=== PATIENT | female | born 1945 | race Caucasian/White ===

== ENCOUNTER 2020-01-19 10:46 | Inpatient (IN) | payer MEDICARE, OTHER ==
[~2020-01-19] VITALS: Ht 162.6 cm; Wt 49.4 kg
[2020-01-19] MEDS ORDERED: MECLIZINE CHEWABLE 25 MG TAB ONE (11:23)
[2020-01-19] MEDS ORDERED: MECLIZINE CHEWABLE 25 MG TAB PO ONE (11:30)
[2020-01-19 11:39] LABS: BASOPHILS % (AUTO) 0 % (0-1); EOSINOPHILS % (AUTO) 0 % (1-7); LYMPHOCYTES % (AUTO) 9 % (22-44); MD NO; MEAN CORPUSCULAR HEMOGLOBIN 32.5 pg (27.0-34.8); MEAN CORPUSCULAR HGB CONC 33.6 g/dL (32.4-35.8); MEAN CORPUSCULAR VOLUME 96.6 fL (80-100); MEAN PLATELET VOLUME 6.3 fL (7.4-10.4); MONOCYTES # (AUTO) 0.49 x10^3/uL (0.2-0.8); MONOCYTES % (AUTO) 9 % (2-9); NEUTROPHILS % (AUTO) 82 % (42-75); PLATELET COUNT 331 x10^3/uL (130-400); RED CELL DISTRIBUTION WIDTH 13.1 % (9.6-15.2)
[2020-01-19 11:41] LABS: ALBUMIN 3.7 g/dL (3.4-5.0); CALCIUM 8.9 mg/dL (8.5-10.1); CREATININE 0.46 mg/dL (0.55-1.02)
[2020-01-19 11:45] LABS: TROPONIN I < 0.015 ng/mL (0.000-0.045)
--- NOTE | 2020-01-19 11:46 | NUR ---
PT STATES INCREASING DIZZINESS, G/O WEAKNESS AND NAUSEA SINCE STARTING SCRIPT FOR SHINGLES X4 DAYS AGO. PT PLACED ON MONITORS, VSS. PT MEDICATED PER ORDERS. PT TO IMAGING. CONT TO MONITOR.
[2020-01-19 11:47] LABS: ANION GAP 10 mmol/L (5-15); CHLORIDE 72 mmol/L (98-107)
--- NOTE | 2020-01-19 12:03 | NUR ---
CRITICAL NA+ 111 REPORTED TO ERMD. SALES REPRESENTATIVE RAW [employer] STUDENT AT BEDSIDE FOR IV START, RN TO SUPERVISE. PT REMAINS ON MONITORS, VSS.
--- NOTE | 2020-01-19 12:07 | NUR ---
IRIS AT [facility] FOR REASSESSMENT.
[2020-01-19] MEDS ORDERED: SODIUM CHLORIDE 0.9% 1,000 ML IV ONE (12:30)
[2020-01-19] MEDS ORDERED: POTASSIUM CHLORIDE 20 MEQ PACKET PO ONE (12:30)
[2020-01-19] MEDS ORDERED: SODIUM CHLORIDE 0.9% 1,000ML IVBOLUS ONE (12:30)
[2020-01-19] MEDS ORDERED: POTASSIUM CHLORIDE 20 MEQ PACKET ONE (12:36)
--- NOTE | 2020-01-19 13:03 | NUR ---
IV X2 STARTED, SEIZURE PADS IN PLACE. PT REMAINS ON MONITORS, VSS. PT GIVEN BLANKET FOR COMFORT. PT AWARE OF POC, TO BE CCU ADMIT. NO DISTRESS, CONT TO MONITOR.
--- NOTE | 2020-01-19 14:00 | NUR ---
REPORT GIVEN TO BRANDI MELENDREZ IN CCU. WHEN ROOM CLEAN, PT OK TO MOVE TO CCU. PT AWARE OF POC. PT UP TO BEDSIDE COMMODE WITH STANDBY ASSIST. PT REMAINS N MONITORS, VSS. CONT TO MONITOR. REMAINS ON SEIZURE PRECAUTIONS.
--- NOTE | 2020-01-19 14:57 | NUR ---
PT TRANSPORTED TO CCU, HAS ALL OWN BELONGINGS UPON TRANSFER.
[2020-01-19 15:26] VITALS: BP 152/84
[2020-01-19] MEDS ORDERED: ACETAMINOPHEN 325 MG TABLET PO PRN (15:30)
[2020-01-19] MEDS ORDERED: OXYcodone IR 5MG TABLET PO PRN (15:30)
[2020-01-19] MEDS ORDERED: ONDANSETRON 2MG/ML, 2ML IVPush PRN (15:30)
[2020-01-19] MEDS ORDERED: LABETALOL 5MG/ML, 20ML IVPush PRN (15:30)
[2020-01-19] MEDS ORDERED: POLYETHYLENE GLYCOL 17 GM PACKET PO PRN (15:30)
[2020-01-19] MEDS ORDERED: BISACODYL 10 MG SUPP PR PRN (15:30)
[2020-01-19] MEDS ORDERED: ENALAPRILAT 1.25 MG/ML, 2ML IVPush PRN (15:30)
[2020-01-19] MEDS: ENOXAPARIN 40 MG/0.4 ML SQ SCH (16:09)
[2020-01-19] MEDS: ACYCLOVIR 700 MG in SODIUM CHLORIDE 0.9% 100 ML IV SCH (16:09)
[2020-01-19 16:24] LABS: ANION GAP 10 mmol/L (5-15); CALCIUM 8.1 mg/dL (8.5-10.1); CHLORIDE 75 mmol/L (98-107); CREATININE 0.41 mg/dL (0.55-1.02)
[2020-01-19] MEDS ORDERED: POTASSIUM CHLORIDE 20 MEQ PACKET PO SCH (17:00)
[2020-01-19] MEDS ORDERED: TRIA15CR61 TP (19:00)
[2020-01-19] MEDS ORDERED: VALA10007 PO (19:00)
[2020-01-19] MEDS ORDERED: TRIA1CAP3 PO (19:00)
[2020-01-19 19:42] VITALS: BP 124/65
[2020-01-19 20:29] LABS: ANION GAP 7 mmol/L (5-15); CALCIUM 8.2 mg/dL (8.5-10.1); CHLORIDE 80 mmol/L (98-107); CREATININE 0.42 mg/dL (0.55-1.02)
[2020-01-20] MEDS: ACYCLOVIR 700 MG in SODIUM CHLORIDE 0.9% 100 ML IV SCH ×4 (00:21→23:03)
[2020-01-20 00:51] LABS: ANION GAP 5 mmol/L (5-15); CALCIUM 8.3 mg/dL (8.5-10.1); CHLORIDE 86 mmol/L (98-107); CREATININE 0.45 mg/dL (0.55-1.02)
[2020-01-20] MEDS ORDERED: POTASSIUM CHLORIDE 20 MEQ PACKET PO ONE ×2 (01:30→05:30)
[2020-01-20 01:38] VITALS: BP 113/62
[2020-01-20 04:05] VITALS: BP 104/71
[2020-01-20 05:04] LABS: CHLORIDE 89 mmol/L (98-107)
[2020-01-20 05:10] LABS: ANION GAP 9 mmol/L (5-15); CALCIUM 8.3 mg/dL (8.5-10.1); CREATININE 0.31 mg/dL (0.55-1.02)
[2020-01-20] MEDS: SENNA/DOCUSATE TABLET PO SCH (07:48)
[2020-01-20 09:03] LABS: ANION GAP 5 mmol/L (5-15); CALCIUM 8.6 mg/dL (8.5-10.1); CHLORIDE 90 mmol/L (98-107); CREATININE 0.49 mg/dL (0.55-1.02)
[2020-01-20] MEDS ORDERED: SODIUM CHLORIDE 0.9% 1,000 ML IV SCH ×2 (14:00→14:01)
[2020-01-20 14:26] LABS: ANION GAP 6 mmol/L (5-15); CHLORIDE 93 mmol/L (98-107); CREATININE 0.45 mg/dL (0.55-1.02)
[2020-01-20] MEDS ORDERED: POTASSIUM CHLORIDE 20 MEQ TAB.ER.PRT PO ONE (15:00)
[2020-01-20] MEDS: ENOXAPARIN 40 MG/0.4 ML SQ SCH (15:08)
[2020-01-20 16:13] LABS: CALCIUM 8.9 mg/dL (8.5-10.1)
[2020-01-20 17:04] LABS: ANION GAP 7 mmol/L (5-15); CALCIUM 8.3 mg/dL (8.5-10.1); CHLORIDE 96 mmol/L (98-107); CREATININE 0.41 mg/dL (0.55-1.02)
[2020-01-20 22:48] VITALS: BP 135/77
[2020-01-21 00:18] VITALS: BP 137/84
[2020-01-21 05:07] LABS: CHLORIDE 99 mmol/L (98-107)
[2020-01-21 05:13] LABS: ANION GAP 8 mmol/L (5-15); CALCIUM 8.2 mg/dL (8.5-10.1); CREATININE 0.33 mg/dL (0.55-1.02)
[2020-01-21 07:45] VITALS: BP 134/78
[2020-01-21] MEDS: SENNA/DOCUSATE TABLET PO SCH (08:03)
[2020-01-21] MEDS: ACYCLOVIR 700 MG in SODIUM CHLORIDE 0.9% 100 ML IV SCH ×3 (08:03→23:48)
[2020-01-21 13:34] VITALS: BP 117/71
[2020-01-21] MEDS ORDERED: SODIUM CHLORIDE 0.9% 1,000 ML IV SCH (14:01)
[2020-01-21] MEDS: ENOXAPARIN 40 MG/0.4 ML SQ SCH (15:30)
[2020-01-21 19:50] VITALS: BP 150/80
[2020-01-22 00:02] VITALS: BP 142/69
[2020-01-22 05:50] LABS: BASOPHILS # (AUTO) 0.02 x10^3/uL (0-0.1); BASOPHILS % (AUTO) 1 % (0-1); EOSINOPHILS # (AUTO) 0.02 x10^3/uL (0-0.4); EOSINOPHILS % (AUTO) 0 % (1-7); LYMPHOCYTES % (AUTO) 20 % (22-44); MD NO; MEAN CORPUSCULAR HEMOGLOBIN 31.6 pg (27.0-34.8); MEAN CORPUSCULAR HGB CONC 32.7 g/dL (32.4-35.8); MEAN CORPUSCULAR VOLUME 96.7 fL (80-100); MEAN PLATELET VOLUME 5.9 fL (7.4-10.4); MONOCYTES # (AUTO) 0.56 x10^3/uL (0.2-0.8); MONOCYTES % (AUTO) 11 % (2-9); NEUTROPHILS # (AUTO) 3.52 x10^3/uL (1.8-6.8); NEUTROPHILS % (AUTO) 69 % (42-75); PLATELET COUNT 287 x10^3/uL (130-400); RED BLOOD COUNT 4.24 x10^6/uL (3.82-5.3); RED CELL DISTRIBUTION WIDTH 13.3 % (9.6-15.2)
[2020-01-22 05:51] LABS: ANION GAP 4 mmol/L (5-15); CALCIUM 8.3 mg/dL (8.5-10.1); CHLORIDE 101 mmol/L (98-107); CREATININE 0.35 mg/dL (0.55-1.02)
[2020-01-22] MEDS ORDERED: POTASSIUM CHLORIDE 20 MEQ TAB.ER.PRT PO ONE (06:30)
[2020-01-22] MEDS ORDERED: LISI-167 PO (07:41)
[2020-01-22 07:50] VITALS: BP 124/77
[2020-01-22] MEDS: ACYCLOVIR 700 MG in SODIUM CHLORIDE 0.9% 100 ML IV SCH (08:02)
[2020-01-22] MEDS: SENNA/DOCUSATE TABLET PO SCH (08:02)
[2020-01-22] MEDS ORDERED: LISINOPRIL 10 MG TABLET PO SCH (09:00)
== END 2020-01-22 10:22 | disposition home or self-care (01) | DRG 641 ==
LOC: ED 11:14 → EDIP 12:15 → CCU 14:49 → 3N 01-20 22:16
PROVIDERS: ADMIT Internal Medicine; ATTEND Internal Medicine
DX: E87.1 Hypo-osmolality and hyponatremia (principal); B02.9 Zoster without complications; E87.6 Hypokalemia; E87.8 Other disorders of electrolyte and fluid balance, not elsewhere classified; Z79.899 Other long term (current) drug therapy; I10 Essential (primary) hypertension; Z82.49 Family history of ischemic heart disease and other diseases of the circulatory system
CPT/HCPCS: 36415; 70450; 80048; 82040; 83735; 84100; 84295; 84484; 85025; 87081; 93005; 99291; G0378; J0133; J1650; J7030